=== PATIENT | female | born 1960 | race Caucasian/White ===

== ENCOUNTER 2021-12-04 13:49 | Outpatient (CLI) | payer OTHER, SELFPAY ==
--- OUTSIDE RECORDS SUMMARY | 2021-12-04 13:53 | XMS_ITS | Clinical Summary ---
:1960 Author Organization [facility] Address [address] [place] [address] Care Team Providers Name Role Phone No Ref-Primary, Physician Primary Care Provider [phone] Marielle Hernandez DPM, Podiatry/Foot and Ankle Unavailable Surgery Allergies No known active allergies Medications Medication Sig Dispensed Refills Start Date End Date Status sertraline (ZOLOFT) 50 MG tablet Daily 0 021 Active fluorouracil (EFUDEX) 5 % external 0 09/06 Active cream Hospital, Clinic, or Other Ordered Dose Route Frequency Start Date End Date Status Facility Administered Medication triamcinolone (KENALOG-40) 40 mg 01/30/2021 Active injection 40 mgIndications: Right foot pain, Plantar fasciitis, right 2 mL bupivacaine (MARCAINE) 2 mL 01/30/2021 Active preservative free injection 0.5% (20 mL vial)Indications: Right foot pain, Plantar fasciitis, right Social History Tobacco Use Types Packs/Day Years Used Date Smoking Tobacco: Never Smokeless Tobacco: Never Tobacco Cessation: Counseling Given: No Sex Assigned at Date Recorded Not on file Last Filed Vital Signs Vital Sign Reading Time Taken Comments Blood Pressure 112/72 01/30/2021 2:53 PM SPECIAL ORDER JEWELER Pulse - - Temperature - - Respiratory Rate - - Oxygen Saturation - - Inhaled Oxygen Concentration - - Weight 87.6 kg (193 lb 3.2 oz) 01/30/2021 2:53 PM SPECIAL ORDER JEWELER Height 176.5 cm (5' 9.5) 01/30/2021 2:53 PM SPECIAL ORDER JEWELER Body Mass Index 28.12 01/30/2021 2:53 PM SPECIAL ORDER JEWELER Plan of Treatment Health Maintenance Due Date Last Done Comments ADVANCE CARE PLANNING 1960 ANNUAL REVIEW OF HM ORDERS 1960 CT COLONOGRAPHY 1962 FIT-DNA (Cologuard) 1962 FIT 1962 FLEX SIG 1960 HEPATITIS B IMMUNIZATION (1 1962 of 3 - 3-dose series) MAMMO SCREENING 1960 YEARLY PREVENTIVE VISIT 1962 COLONOSCOPY 1972 COLORECTAL CANCER SCREENING 1972 HIV SCREENING 1977 HEPATITIS C SCREENING 1980 PAP 12/10/1983 LIPID 12/10/2007 ZOSTER IMMUNIZATION (1 of 2012 2) COVID-19 Vaccine (3 - 08/24/2020 06/29/2020, 06/01/2020 Booster for Moderna series) PHQ-2 (once per calendar 02/09/2021 year) INFLUENZA VACCINE (#1) 2021 11/06/2014, 02/26/2009, 12/07/2002, Additional history exists DTAP/TDAP/TD IMMUNIZATION 01/08/2031 01/08/2021, 01/08/2021 , (5 - Td or Tdap) 02/05/2009, Additional history exists IPV IMMUNIZATION Aged Out No longer eligi ble based on patient 's age to complete this topic MENINGITIS IMMUNIZATION Aged Out No longe r eligible based on patient 's age to complete this topic Pneumococcal Vaccine: Aged Out No longer eligible Pediatrics (0 to 5 Years) based on patient's age and At-Risk Patients (6 to to co mplete this topic 64 Years) Insurance Payer Benefit Plan / Subscriber ID Effective Phone Address T e Group Dates [facility] [id number] 2019-Prese [phone] [address] [facility] [address] [place] [address] (Work) [phone] Care Teams Miniature Set Constructor Relationship Specialty Start Date End Date No Ref-Primary, PCP - General 01/25/20 Physician Marielle Hernandez, DPM, Assigned Musculoskeletal 01/29/20 Podiatry/Foot and Ankle Provider Surgery [address] [place] [address] [id number]
--- OUTSIDE RECORDS SUMMARY | 2021-12-04 13:53 | XMS_ITS | Encounter Summary ---
:1960 Author Organization [facility] Address [address] [place] [address] Care Team Providers Name Role Phone No Ref-Primary, Physician Primary Care Provider [phone] Reason for Referral Diagnostic Imaging XR (Routine) - Closed Specialty Diagnoses / Procedures Referred By Contact Refer red To Contact Diagnoses Right foot pain Marielle Hernandez DPM, Procedures XR Foot Right G/E 3 Views Podiatry/Foot and Ankle Surgery [address] [place] [address] Referral ID Status Reason Start Date Expiration Date Visits Requ ested Visits Authorized [id number] Closed 01/25/2020 01/24/2021 1 1 KING CRANE ENGINE OPERATOR Reason for Visit Reason Comments Pain heel pain Encounter Details Date Type Department Care Team Description 01/25/2020 [facility], f [facility]ot pain (Primary Dx); [facility] [place] [facility], Podiatry/Foot [place] fasciitis, right; Podiatry and Ankle Surgery [place] [address] [place] [address] [place] [address] [place], [place] [phone] [id number] (Wo rk) Social History Tobacco Use Types Packs/Day Years Used Date Smoking Tobacco: Never Smokeless Tobacco: Never Tobacco Cessation: Counseling Given: Yes Sex Assigned at Date Recorded Not on file COVID-19 Exposure Response Date Recorded In the last month, have you been in contact with No / Unsure 01/25/2020 3:25 PM WRECKING CRANE ENGINE OPERATOR someone who was confirmed or suspected to have Coronavirus / COVID-19? documented as of this encounter Last Filed Vital Signs Vital Sign Reading Time Taken Comments Blood Pressure 118/70 01/25/2020 3:44 PM WRECKING CRANE ENGINE OPERATOR Pulse - - Temperature - - Respiratory Rate - - Oxygen Saturation - - Inhaled Oxygen Concentration - - Weight 83.9 kg (185 lb) 01/25/2020 3:44 PM WRECKING CRANE ENGINE OPERATOR stated Height 176.5 cm (5' 9.5) 01/25/2020 3:44 PM WRECKING CRANE ENGINE OPERATOR stated Body Mass Index 26.93 01/25/2020 3:44 PM WRECKING CRANE ENGINE OPERATOR documented in this encounter Patient Instructions Patient InstructionsKylah Meyer - 01/25/2020 3:45 PM CST Images from the original note were not included. Thank you for choosing [facility] Podiatry / Foot & Ankle Surgery! [facility] SCHEDULE SURGERY: [phone] BILLING QUESTIONS: [phone] [place] [address] AFTER HOURS: PH: [phone] CONSUMER MARQUES LINE:[phone] FAX: [phone] APPOINTMENTS: [phone] PLANTAR FASCIITIS Plantar fasciitis is often referred to as heel spurs or heel pain. Plantar fasciitis is a very common problem that affects people of all foot shapes, age, weight and activity level. Pain may be in the arch or on the weight-bearing surface of the heel. The pain may come on without injury or identifiable cause. Pain is generally present when first getting out of bed in the morning or up from a seated break. CAUSES The plantar fascia is a dense fibrous band of tissue that stretches across the bottom surface of thefoot. The fascia helps support the foot muscles and arch. Plantar fasciitis is thought to be caused by mechanical strain or overload. Frequent walking without shoes or wearing unsupportive shoes is thought to cause structural overload and ultimately inflammation of the plantar fascia. Some people haveheel spurs that can be seen on x-ray. The heel spur is actually a minor component of plantar fascitis and is largely ignored. SELF TREATMENT The easiest solution is to stop walking around your home without shoes. Plantar fasciitis is largelya shoe problem. Shoes are either not being worn often enough or your current shoes are inadequate for your weight, foot structure or activity level. The majority of shoes on the market today are not sufficient to resist development of plantar fasciitis or to promote healing. Assume that your current shoes are inadequate and will need to be replaced. Even high quality shoes wear out with 6 months to one year of frequent use. Weight loss is another option. Losing ten pounds in the next two months may be enough to resolve the problem. Ice applied to the area of pain two to three times per day for ten minutes each session can be very helpful. This should continue until the problem resolves. Achilles tendon stretching is essential. Stretch multiple times daily to promote healing and to prevent recurrence in the future. MEDICAL TREATMENT Medical treatments often include custom arch supports, cortisone injections, physical therapy, splints to be worn in bed, prescription medications and surgery. The home treatments listed above will be necessary regardless of these advanced medical treatments. Surgery is rarely needed but is very helpful in selected cases. PROGNOSIS Plantar fasciitis can last from one day to a lifetime. Some people get intermittent fascitis that isvery short-lived. Others suffer daily for years. Excessive body weight, frequent bare foot walking, long hours on the feet, inadequate shoes, predisposing foot structures and excessive activity such as running are all potential issues that lead to chronic and/or recurring plantar fascitis. Having plantar fasciitis means that you are forever prone to this problem and will require modification of some of the above factors. Most people seek treatment within one to four months. Healing usually requires a similar one to four month time frame. Healing time is relative to the amount of effort spent treating the problem. Plantar fasciitis is highly recurrent. Risk factors often continue, including return to bare foot walking, inadequate shoes, excessive body weight, excessive activities, etc. Your life style and foot structure may predispose you to recurrent plantar fasciitis. A daily prevention regimen can be very helpful. Ongoing use of shoe inserts, careful attention to appropriate shoes, daily Achilles stretching, etc. may prevent recurrence. Prompt attention at the earliest warning signs of heel pain can resolve the problem in as short as a few days. EXERCISES Stair Exercise: Step on the stairs with the ball of your foot and hold your position for at least 15seconds, then slowly step down with the heels of your foot. You can do this daily and as often as you want. Picking the Towel: Sit comfortably and then pick the towel up with your toes. You can use any objectother than a towel as long as the material can be soft and you can pick it up with your toes. Rolling the Bottle: Use a small ball or frozen water bottle and then roll it around with your foot. Flex the Toes: Sit comfortably and then flex your toes by pointing it towards the floor or towards your body. This will relax and flex your foot and exercise your plantar fascia, the calf, and the Achilles tendon. The inability of the foot to stretch often causes the bunching up of the plantar fascia area leading to the pain. Calf/Achilles Stretching: Lay on you back and raise one foot, then point your toes towards the floor. See photo below: Hold each stretch for 10 seconds. Stretch 10 times per set, three sets per day. Morning, afternoon and evening. If your heel pain is very severe in the morning, consider doing the first set of stretches before you get out of bed. THERAPIES DISCUSSED: 1. Supportive Shoes: minimizing barefoot ambulation helps to provide cushion, padding and support tothe ligament that is inflamed. Socks, flip flops, flats and some slippers are not typically sufficient to provide support. Shoes should be worn even indoors 2. Insert/Orthotics: ones with an arch support built in to them provide further stress relief for the ligament. See the information below on recommended inserts. 3. Icing: using a frozen water bottle or orange, and rolling it along the bottom of the arch/heel can help to alleviate discomfort, and can act as a tissue massage to the painful, inflamed ligament. There is evidence that shows icing at least three times daily can be beneficial 4. Antiinflammatory (NSAID): Ibuprofen, Aleve, as well as Tylenol can be used to help decrease symptoms and improve pain levels. If you have high blood pressure, heart disease, stomach or kidney problems, use antiinflammatories sparingly. Tylenol should not be used if you have liver problems. 5. Activity Modifications: if there are certain things that you do, whether it's going barefoot or certain shoes/activities, you should try to minimize those activities as much as possible until your symptoms are sufficiently resolved. Certainly, some activities, such as running on the treadmill, are easier to take a break from versus others, such as work or chores at home. If there are certain activities that hurt your heel, and you keep doing those activities that hurt your heel, your heel will keep hurting. If these initial therapies are insufficient, we have our tier 2 therapies that can more aggressively work to improve your symptoms and get you back to the activities that you enjoy! OVER THE COUNTER INSERTS Most of these can be found at your local [employer], Physician Referral Network (PRN), or online: [employer] Sofsole Fit Joonto Power Step Walk-Fit ([employer]) *For heel pain* Arch Cradles *For heel pain* A good high quality over the counter insert should cost around $40-$50 [employer] LOCATIONS [place] [address] [place] [address] [phone] [place] [address] [facility] [phone] [place] [address] [facility] N. [phone] [place] [address] [facility] [phone] [place] [address] [place] [address] [place]. [phone] [facility] [address] [facility] [phone] [place] [address] [facility], [address] [place] [address] [facility], [address] KING CRANE ENGINE OPERATOR documented in this encounter Progress Notes Marielle Hernandez DPM, Podiatry/Foot and Ankle Surgery - 01/25/2020 3:45 PM WRECKING CRANE ENGINE OPERATOR PATIENT HISTORY: Isatu Melton is a 59 year old female who presents to clinic for pain to the right heel. Has been going on for years. Gradually getting worse. Notes deep ache most of the time but can be sharp especially when she gets up in the morning or after she has been standing for a long time.Pain is 8 out of 10 at its worst. Denies specific injury. She does wear shoes in the house and has tried massage to the area which helps some. She is wondering what can be done to get rid of the heel pain. Review of Systems: Patient denies fever, chills, rash, wound, stiffness, numbness, weakness, heart burn, blood in stool, chest pain with activity, calf pain when walking, shortness of breath with activity, chronic cough, easy bleeding/bruising, swelling of ankles, excessive thirst, fatigue, depression, anxiety. Patient admits to limping at times. PAST MEDICAL HISTORY: No past medical history on file. PAST SURGICAL HISTORY: No past surgical history on file. MEDICATIONS: No current outpatient medications on file. ALLERGIES: No Known Allergies SOCIAL HISTORY: Social History Socioeconomic History ??? Marital status: Spouse name: Not on file ??? Number of children: Not on file ??? Years of education: Not on file ??? Highest education level: Not on file Occupational History ??? Not on file Social Needs ??? Financial resource strain: Not on file ??? Food insecurity Worry: Not on file Inability: Not on file ??? Transportation needs Medical: Not on file Non-medical: Not on file Tobacco Use ??? Smoking status: Never Smoker ??? Smokeless tobacco: Never Used Substance and Sexual Activity ??? Alcohol use: Not on file ??? Drug use: Not on file ??? Sexual activity: Not on file Lifestyle ??? Physical activity Days per week: Not on file Minutes per session: Not on file ??? Stress: Not on file Relationships ??? Social connections Talks on phone: Not on file Gets together: Not on file Attends [employer]ar[employer] service: Not on file Active member of club or organization: Not on file Attends meetings of clubs or organizations: Not on file Relationship status: Not on file ??? Intimate partner violence Fear of current or ex partner: Not on file Emotionally abused: Not on file Physically abused: Not on file Forced sexual activity: Not on file Other Topics Concern ??? Not on file Social History Narrative ??? Not on file FAMILY HISTORY: No family history on file. EXAM:Vitals: Ht 1.765 m (5' 9.5) Wt 83.9 kg (185 lb) BMI 26.93 kg/m?? BMI= Body mass index is 26.93 kg/m??. General appearance: Patient is alert and fully cooperative with history & exam. No sign of distress is noted during the visit. Psychiatric: Affect is pleasant & appropriate. Patient appears motivated to improve health. Respiratory: Breathing is regular & unlabored while sitting. HEENT: Hearing is intact to spoken word. Speech is clear. No gross evidence of visual impairment that would impact ambulation. Dermatologic: Skin is intact to both lower extremities without significant lesions, rash or abrasion. No paronychia or evidence of soft tissue infection is noted. Vascular: DP & PT pulses are intact & regular bilaterally. No significant edema or varicosities noted. CFT and skin temperature is normal to both lower extremities. Neurologic: Lower extremity sensation is intact to light touch. No evidence of weakness or contracture in the lower extremities. No evidence of neuropathy. Musculoskeletal: Patient is ambulatory without assistive device or brace. No gross ankle deformity noted. No foot or ankle joint effusion is noted. Radiographs: right foot xray - I personally reviewed the xrays- Increase calcaneal inclination angle. Plantar heel spur noted. No fractures noted. ASSESSMENT: Right foot pain Plantar fasciitis, right Pes cavus PLAN: Reviewed [facility] in [facility]. Reviewed and discussed x-rays with patient. The potential causes and nature of plantar fasciitis were discussed with the patient. We reviewed the natural history/prognosis of the condition and risks if left untreated. These include chronic pain, other sites of pain due to gait changes, and potential plantar fascial rupture. We discussed possible causes of the condition as it relates to the patients specific situation. Conservative treatment options were reviewed: appropriate shoes, avoidance of barefoot walking, inserts/orthoses, stretching, ice, massage, immobilization and NSAIDs. We also reviewed the options of injection therapy and surgery. However, it was made clear that surgery is only considered when conservative therapy fails. The risks and benefits of injection therapy, and surgery were discussed. After thorough discussion and answering all questions, the patient elected to do an injection of theright heel today. We will also order an ankle brace that she will wear for the next 2 weeks to protect the plantar fascia. Recommend a night splint that she wear at night and continue to wear supportive sandals and shoes such as half lingers in the house and not go barefoot or in socks. Recommend continuing stretching and she was given some stretches today. If pain does not improve in 3 to 4 weeks recommend an MRI of the right ankle. All questions were answered to patient satisfaction and she will call further questions or concerns.. Procedure: After verbal consent, the patients max point of tenderness was marked out on the right plantar heel. This area was prepped and draped using sterile technique. An injection of 1cc of 1% lidocaine plain and 1 1/2 cc of Kenalog-40 was injected into the max point of tenderness. This was distributed in a fanning motion. Patient tolerated the procedure and anesthesia well. Marielle Hernandez DPM, Podiatry/Foot and Ankle Surgery Weight management plan: Patient was referred to their PCP to discuss a diet and exercise plan. KING CRANE ENGINE OPERATOR documented in this encounter Plan of Treatment Not on filedocumented as of this encounter Results XR Foot Right G/E 3 Views (01/25/2020 4:05 PM WRECKING CRANE ENGINE OPERATOR) Anatomical Region Laterality Modality Foot, Ankle Right Computed Radiography Specimen (Source) Anatomical Location Collection Method / Collectio n Time Received Time / Laterality Volume Impressions 01/26/2020 4:15 PM WRECKING CRANE ENGINE OPERATOR IMPRESSION: No acute bony or soft tissue abnormality. Plantar calcaneal spur. No degenerative changes. RAO EDWARDS MD Narrative 01/26/2020 4:15 PM WRECKING CRANE ENGINE OPERATOR FOOT RIGHT THREE OR MORE VIEWS 01/25/2020 4:05 PM HISTORY: Right foot pain. COMPARISON: None. Procedure Note Rao Edwards MD - 01/26/2020Fo rmatting of this note might be different from the original. FOOT RIGHT THREE OR MORE VIEWS 0 4:05 PM HISTORY: Right foot pain. COMPARISON: None. IMPRESSION: No acute bony or soft tissue abnormality. Plantar calcaneal spur. No degenerative changes. RAO EDWARDS MD Marielle Hernandez DPM, Podiatry/Foot and Ankle Surgery IMG DIAGNOSTIC IMAGING ORDERABLES documented in this encounter Visit Diagnoses Diagnosis Right foot pain - Primary Pain in limb Plantar fasciitis, right Plantar fascial fibromatosis Pes cavus Tal[place] cavus Right foot pain Pain in limb documented in this encounter Care Teams Mva Operator Relationship Specialty Start Date End Date No Ref-Primary, Physician PCP - General 01/25/20 documented as of this encounter
--- OUTSIDE RECORDS SUMMARY | 2021-12-04 13:53 | XMS_ITS | Continuity of Care Document ---
:1960 Author Organization [facility] Address Unavailable , Encounter 11/25/21 - 11/25/21 [facility] Encounter Diagnosis Bronchitis, unclear etiology (Discharge Diagnosis) - 11/25/21 Discharge Disposition: Home Attending Physician: Teagan Baires NP Admitting Physician: Teagan Baires NP Referring Physician: Teagan Baires NP Assessment and Plan Extracted from: Title: Urgent Care Note Author: Teagan Baires NP Date: 11/25 Bronchitis, unclear etiology -7 days course. Did not start with other upper respiratory symptoms; so I am not convinced it is infectious-based. Possibly due to environmental allergens. ??I discussed that we could??put her on a 5-da y burst of prednisone to see if that dougie l help with inflammation??of her upper airways??and hopefully??reduce her cough.?? In addition, I can also prescribe her??some guaifenesin with codeine??that she could use??at nighttime.?? She verbalize d understanding of the plan and is in agreement.?? I advised her that if her symptoms do not resolve over the next??few weeks, to follow-up. Orders: codeine-guaifenesin, 10 ML, orally, ever y 4 hour, X 7 Days, # 120 ML, Refill(s) 0, PRN as needed for cough, Pharmacy: [facility] predniSONE, 40 MG = 2 tab, orally, 1 ti me a day, X 5 Days, # 10 tab, Refill(s) 0, Pharmacy: [facility] Functional Status 11/25/21 ADLs (func) Independent Disabilities (func) None Medications codeine-guaifenesin 10 mg-100 mg/5 ml oral syrup 10 ML, orally, every 4 hour, X 7 Days, # 120 ML, Refill(s) 0, PRN as needed for cough, Pharmacy: [facility] Start Date: 11/25/21 Stop Date: 12/02/21 Status: Orderedprednisone 20 mg oral tablet 40 MG = 2 tab, orally, 1 time a day, X 5 Days, # 10 tab, Refill(s) 0, Pharmacy: [facility] Start Date: 11/25/21 Stop Date: 11/30/21 Status: Orderedsertraline 50 mg oral tablet 50 MG = 1 tab, orally, 1 time a day, Refill(s) 0 Start Date: 11/25/21 Status: Ordered Mental Status 11/25/21 Able to Report correct day of the week Correct Able to Report correct month Accurate within 5 days Able to Report correct year Correct Problem List Diagnosis Diagnosis Type Effective Dates Health Status Clinical In formant Service Bronchitis, Discharge 11/25/21 Non-Specified unclear etiology Diagnosis Vital Signs Most recent to oldest [Reference Range]: 1 Blood Pressure [100-150/50-95 mmHg] 129/78 mmHg (11/25/21 8:47 AM) Respiratory Rate [12-20 br/min] 16 br/min (11/25/21 8:47 AM) Temperature Oral [96-100 DegF] 98.3 DegF (11/25/21 8:47 AM) Pulse Rate [55-100 bpm] 62 bpm (11/25/21 8:47 AM) Oxygen Saturation [94-100 %] 97 % (11/25/21 8:47 AM) Do you have these Coronavirus symptoms? Cough, Sore throat (11/25/21 8:47 AM) Where have you traveled? [place] (11/25/21 8:47 AM) Social History Social History Type Response Smoking Status Never (less than 100 in life time); Never; Tobacco Screening/Education Patient was screened for tobacco use and is a nonuser.; Smoking in Household No entered on: 11/25/21 Sex Female
--- OUTSIDE RECORDS SUMMARY | 2021-12-04 13:53 | XMS_ITS | Encounter Summary ---
:1960 Author Organization [facility] Address [address] [place] [address] Care Team Providers Name Role Phone No Ref-Primary, Physician Primary Care Provider [phone] Reason for Visit Diagnostic Imaging XR (Routine) - Closed Specialty Diagnoses / Procedures Referred By Contact Refer red To Contact Diagnoses Right foot pain Marielle Hernandez, DPM, Procedures XR Foot Right G/E 3 Views Podiatry/Foot and Ankle Surgery [address] [facility] [address] [place] [address] Referral ID Status Reason Start Date Expiration Date Visits Requ ested Visits Authorized [id number] Closed 01/25/2020 01/24/2021 1 1 Encounter Details Date Type Department Care Team Description 01/25/2020 [facility] Right foot pain Sports and DPM, Podiatry/Foot Orthopedic Care and Ankle Surger y [place] [address] [address] [facility] [address] [place] [address] [id number] Social History Tobacco Use Types Packs/Day Years Used Date Smoking Tobacco: Never Smokeless Tobacco: Never Sex Assigned at Date Recorded Not on file COVID-19 Exposure Response Date Recorded In the last month, have you been in contact with No / Unsure 01/25/2020 3:25 PM FOLDER TIER someone who was confirmed or suspected to have Coronavirus / COVID-19? documented as of this encounter Plan of Treatment Not on filedocumented as of this encounter Procedures Procedure Name Priority Date/Time Associated Diagnosis Comme nts XR FOOT RIGHT G/E 3 Routine 01/25/2020 4:05 PM Right foot pain Results for this VIEWS FOLDER TIER procedure are i n the results section. documented in this encounter Results XR Foot Right G/E 3 Views (01/25/2020 4:05 PM FOLDER TIER) Anatomical Region Laterality Modality Foot, Ankle Right Computed Radiography Specimen (Source) Anatomical Location Collection Method / Collectio n Time Received Time / Laterality Volume Impressions 01/26/2020 4:15 PM FOLDER TIER IMPRESSION: No acute bony or soft tissue abnormality. Plantar calcaneal spur. No degenerative changes. RAO EDWARDS MD Narrative 01/26/2020 4:15 PM FOLDER TIER FOOT RIGHT THREE OR MORE VIEWS 01/25/2020 [...] encounter Visit Diagnoses Diagnosis Right foot pain Pain in limb documented in this encounter Care Teams Leadite Worker Relationship Specialty Start Date End Date No Ref-Primary, Physician PCP - General 01/25/20 documented as of this encounter
--- OUTSIDE RECORDS SUMMARY | 2021-12-04 13:53 | XMS_ITS | Encounter Summary ---
:1960 Author Organization [facility] Address [address] [place] [address] Care Team Providers Name Role Phone No Ref-Primary, Physician Primary Care Provider [phone] Marielle Hernandez DPM, Podiatry/Foot and Ankle Unavailable Surgery Encounter Details Date Type Department Care Team Description 01/30/2021 Office Visit [facility] Marielle Hernandez, NO SHOW (Primary Dx) [facility] DPGrant, Podiatry/Foot Podiatry and Ankle Surgery [address] [place] [address] [place], [place] [phone] (Wo rk) Social History Tobacco Use Types Packs/Day Years Used Date Smoking Tobacco: Never Smokeless Tobacco: Never Sex Assigned at Date Recorded Not on file COVID-19 Exposure Response Date Recorded In the last month, have you been in contact with No / Unsure 01/30/2021 2:[address] ENGINEER someone who was confirmed or suspected to have Coronavirus / COVID-19? documented as of this encounter Progress Notes Marielle Hernandez DPM, Podiatry/Foot and Ankle Surgery - 01/30/2021 7:[address] ENGINEER No show WAY ENGINEER documented in this encounter Plan of Treatment Not on filedocumented as of this encounter Visit Diagnoses Diagnosis NO SHOW - Primary documented in this encounter Care Teams Junior Account Executive Relationship Specialty Start Date End Date No Ref-Primary, PCP - General 01/25/20 Physician Marielle Hernandez DPM, Assigned Musculoskeletal 01/29/20 Podiatry/Foot and Ankle Provider Surgery [address] [place] [address] documented as of this encounter
--- OUTSIDE RECORDS SUMMARY | 2021-12-04 13:53 | XMS_ITS | Encounter Summary ---
:1960 Author Organization [facility] Address [address] [place] [address] Care Team Providers Name Role Phone No Ref-Primary, Physician Primary Care Provider [phone] Marielle Hernandez DPM, Podiatry/Foot and Ankle Unavailable Surgery Reason for Visit Reason Comments Pain Encounter Details Date Type Department Care Team Description 01/30/2021 Office Visit [facility] Marielle Hernandez, Right f oot pain (Primary Dx); [facility] [place] DPM, Podiatry/Foot Planta r fasciitis, right Podiatry and Ankle Surgery [address] [place] [address] [place], [place] [phone] [facility] [phone] (Wo rk) Social History Tobacco Use Types Packs/Day Years Used Date Smoking Tobacco: Never Smokeless Tobacco: Never Tobacco Cessation: Counseling Given: No Sex Assigned at Date Recorded Not on file COVID-19 Exposure Response Date Recorded In the last month, have you been in contact with No / Unsure 01/30/2021 2:48 PM TOWER WATCHMAN someone who was confirmed or suspected to have Coronavirus / COVID-19? documented as of this encounter Last Filed Vital Signs Vital Sign Reading Time Taken Comments Blood Pressure 112/72 01/30/2021 2:53 PM TOWER WATCHMAN Pulse - - Temperature - - Respiratory Rate - - Oxygen Saturation - - Inhaled Oxygen Concentration - - Weight 87.6 kg (193 lb 3.2 oz) 01/30/2021 2:53 PM TOWER WATCHMAN Height 176.5 cm (5' 9.5) 01/30/2021 2:53 PM TOWER WATCHMAN Body Mass Index 28.12 01/30/2021 2:53 PM TOWER WATCHMAN documented in this encounter Patient Instructions Patient InstructionsFlores Campos - 01/30/2021 2:45 PM CST Images from the original note were not included. Thank you for choosing [facility] Podiatry / Foot & Ankle Surgery! [facility]: [facility] SCHEDULE SURGERY: [phone] BILLING QUESTIONS: [phone] [place] [address] APPOINTMENTS: [phone] PH: [phone] CONSUMER MARQUES LINE:[phone] FAX: [phone] Follow up: as needed Flu vaccines are now available at all [facility] clinics and retail pharmacies across the [facility]. Appointments are required for clinic locations. To schedule an appointment online, please log into [facility] or create an account if you are a new user. You can also call , or simply walk in at one of the [facility] retail pharmacy locations. PLANTAR FASCIITIS Plantar fasciitis is often referred [...] minutes each session can be very helpful. Warm foot soaks in epsom salts can also relieve pain. This should continue until the problem resolves. Achilles tendon stretching is essential. Stretch multipletimes daily to promote healing and to prevent recurrence in the future. Over all stretching of the body is helpful as well such as the calves, thighs and lower back. Normally when one area of the body is tight, other areas are too. Gentle Yoga can be good for this. Over the counter topical anti inflammatories can be helpful such as biofreeze, bengay, salon pas, ect... Oral ibuprofen or aleve is recommended as well to try to calm down inflammation. Night splints can be helpful to gradually stretch the foot at night as a lot of pain is when you getup in the morning. Taking a towel or thera band and stretching the foot back multiple times before you get ou of bed can be beneficial as well. MEDICAL TREATMENT Medical treatments often include custom [...] stretches before you get out of bed. OVER THE COUNTER INSERT RECOMMENDATIONS SuperFeet Sofsole Fit Spenco Power Step Walk-Fit Arch Cradles Most of these can be found at your local [employer], sporting goods stores, or online. A good high quality over the counter insert should cost around $40-$[address] [facility] [address] [place] [address] [phone] [phone] [phone] [place] [address] [phone] [phone] [facility] [address] [facility] [phone] [address] [facility] [address] [place] [address] R WATCHMAN documented in this encounter Progress Notes Marielle Hernandez, MARVA, Podiatry/Foot and Ankle Surgery - 01/30/2021 2:45 PM TOWER WATCHMAN Associated Order(s): Post-Procedure Diagnose(s): Right foot pain; Plantar fasciitis, right Podiatry / Foot and Ankle Surgery Progress Note January 30, 2021 Subject: Patient was seen for pain. Notes that she had an injection about a year ago and it lasted for about 6 to 7 months. Slowly has been getting sore again. Pain is been 7 out of 10. Worse with standing or increased activity. Denies specific injury. Wondering if she can get another shot again today. Objective: Vitals: BP 112/72 Ht 1.765 m (5' 9.5) Wt 87.6 kg (193 lb 3.2 oz) BMI 28.12 kg/m?? BMI= Body mass index is 28.12 kg/m??. Dermatologic: Skin is intact to both lower [...] foot or ankle joint effusion is noted. ?? Radiographs: right foot xray - I personally reviewed the xrays- Increase calcaneal inclination angle. Plantar heel spur noted. No fractures noted. ASSESSMENT: Right foot pain Plantar fasciitis, right Pes cavus Medical Decision Making/Plan: Reviewed patient's chart in [facility]. Reviewed and discussed x-rays with patient. The potential causes and nature of plantar fasciitis were discussed with the patient.?? We reviewed the natural history/prognosis of the condition and risks if left untreated.?? These include chronic pain, other sites of pain due to gait changes, and potential plantar fascial rupture. ?? We discussed possible causes of the condition as it relates to the patients specific situation. ?? Conservative treatment options were reviewed:?? appropriate shoes, avoidance of barefoot walking, inserts/orthoses, stretching, ice, massage, immobilization and NSAIDs. ?? We also reviewed the options of injection therapy and surgery.?? However, it was made clear that surgery is only considered when conservative therapy fails.?? The risks and benefits of injection therapy, and surgery were discussed. ?? After thorough discussion and answering all questions, [...] will call further questions or concerns.. Procedure: [id number] Date/Time: 01/30/2021 3:15 PM Performed by: Marielle Hernandez DPM, Podiatry/Foot and Ankle Surgery Authorized by: Marielle Hernandez DPM, Podiatry/Foot and Ankle Surgery Indications: Pain Needle Size: 25 G Guidance: surface landmarks Approach: Medial Location: Ankle Location comment: Right plantar fascia Site: R ankle Medications: 40 mg triamcinolone 40 MG/ML; 2 mL bupivacaine (PF) 0.5 % Outcome: Tolerated well, no immediate complications Procedure discussed: discussed risks, benefits, and alternatives Consent Given by: Patient Timeout: timeout called immediately prior to procedure Prep: patient was prepped and draped in usual sterile fashion Patient Risk Factor: Patient is a low risk factor for infection. Marielle Hernandez DPM, Podiatry/Foot and Ankle Surgery R WATCHMAN documented in this encounter Plan of Treatment Not on filedocumented as of this encounter Procedures Procedure Name Priority Date/Time Associated Diagnosis Comme nts HC DRAIN/INJ INTER Routine 01/30/2021 3:15 PM Right foot pain Results for this JOINT/BURSA W/O US TOWER WATCHMAN Plantar fasciitis, pro cedure are in right the results section. FL INJECTION SINGLE Routine 01/30/2021 3:14 PM Right trina t pain TENDON TOWER WATCHMAN Plantar fasciitis, SHEATH/LIGAMENT right documented in this encounter Results HC DRAIN/INJ INTER JOINT/BURSA W/O US (01/30/2021 3:15 PM TOWER WATCHMAN) Narrative Marielle Hernandez DPM, Podiatry/Foot and A nkle Surgery - 01/30/2021 3:15 PM TOWER WATCHMAN Marielle Hernandez DPM, Podiatry/Foot and Ankle Surgery ? 01/30/2021 ??3:15 PM [id number] Date/Time: 01/30/2021 3:15 PM Performed by: Marielle Hernandez DPM, Césaria try/Foot and Ankle Surgery Authorized by: Marielle Hernandez DPM, Junior atry/Foot and Ankle Surgery Indications: ??Pain Needle Size: ??25 G Guidance: surface landmarks ?? Approach: ??Medial Location: ??Ankle Location comment: ??Right plantar fascia Site: ??R ankle Medications: ??40 mg triamcinolone 40 MG /ML; 2 mL bupivacaine (PF) 0.5 % Outcome: ??Tolerated well, no immediate complications Procedure discussed: discussed risks, be nefits, and alternatives ?? Consent Given by: ??Patient Timeout: timeout called immediately prio r to procedure ?? Prep: patient was prepped and draped in usual sterile fashion ?? Marielle Hernandez DPM, Podiatry/Foot and Ankle PROCEDURE/M INOR SURGICAL ORDERABLES Surgery documented in this encounter Visit Diagnoses Diagnosis Right foot pain - Primary Pain in limb Plantar fasciitis, right Plantar fascial fibromatosis documented in this encounter Administered Medications Active Administered Medications - up to 3 most recent administrations Medication Order MAR Action Action Date Dose Rate Site 2 mL bupivacaine (MARCAINE) Given 01/30/2021 3:15 PM TOWER WATCHMAN 2 mLs preservative free injection 0.5% (20 mL vial) 2 mL, Starting on Thu01/30/21 at 1515 triamcinolone (KENALOG-40) injection 40 mg Given 01/30/2021 3:15 PM TOWER WATCHMAN 40 mg 40 mg, Starting on Thu01/30/21 at 1515 documented in this encounter Care Teams Sales Development Director Relationship Specialty Start Date End Date No Ref-Primary, PCP - General 01/25/20 Physician Marielle Hernandez DPM, Assigned Musculoskeletal 01/29/20 Podiatry/Foot and Ankle Provider Surgery [address] [place] [address] [place] [address] documented as of this encounter
--- OUTSIDE RECORDS SUMMARY | 2021-12-04 13:53 | XMS_ITS | Encounter Summary ---
:1960 Author Organization [facility] Address [address] [place] [address] Care Team Providers Name Role Phone No Ref-Primary, Physician Primary Care Provider [phone] Encounter Details Date Type Department Care Team Description 01/25/2020 Travel Social History Tobacco Use Types Packs/Day Years Used Date Smoking Tobacco: Never Smokeless Tobacco: Never Sex Assigned at Date Recorded Not on file COVID-19 Exposure Response Date Recorded In the last month, have you been in contact with No / Unsure 01/25/2020 3:25 PM FISHER LAMPARA NET someone who was confirmed or suspected to have Coronavirus / COVID-19? documented as of this encounter Plan of Treatment Not on filedocumented as of this encounter Visit Diagnoses Not on filedocumented in this encounter Care Teams Field Service Engineer Relationship Specialty Start Date End Date No Ref-Primary, Physician PCP - General 01/25/20 documented as of this encounter
--- OUTSIDE RECORDS SUMMARY | 2021-12-04 13:53 | XMS_ITS | Encounter Summary ---
:1960 Author Organization [facility] Address [address] [place] [address] Care Team Providers Name Role Phone No Ref-Primary, Physician Primary Care Provider [phone] Marielle Hernandez DPM, Podiatry/Foot and Ankle Unavailable Surgery Encounter Details Date Type Department Care Team Description 01/30/2021 Travel Social History Tobacco Use Types Packs/Day Years Used Date Smoking Tobacco: Never Smokeless Tobacco: Never Sex Assigned at Date Recorded Not on file COVID-19 Exposure Response Date Recorded In the last month, have you been in contact with No / Unsure 01/30/2021 2:48 PM PROGRAM ADMIN someone who was confirmed or suspected to have Coronavirus / COVID-19? documented as of this encounter Plan of Treatment Not on filedocumented as of this encounter Visit Diagnoses Not on filedocumented in this encounter Care Teams Lead Scientist Relationship Specialty Start Date End Date No Ref-Primary, PCP - General 01/25/20 Physician Marielle Hernandez DPM, Assigned Musculoskeletal 01/29/20 Podiatry/Foot and Ankle Provider Surgery [address] [place] [address] documented as of this encounter
--- OUTSIDE RECORDS SUMMARY | 2021-12-04 13:53 | XMS_ITS | Clinical Summary ---
:1960 Author Organization [facility] [place] [address] Care Team Providers Name Role Phone Regine Rodgers Primary Care Provider Allergies No known active allergies Medications Medication Sig Dispensed Refills Start Date End Date Status sertraline (ZOLOFT) 50 mg once daily. 0 11/23/2020 Active tablet fluorouracil 5% topical 0 09/06/2020 Active (EFUDEX) 5 % cream Active Problems Problem Noted Date Adjustment disorder with depressed mood 02/21/2013 Immunizations Name Administration Dates Next Due Influenza, IIV3 (Age >=3 years) 12/07/2002, 01/27/2002, 08/2001, 02/05/2000, 12/05/1997, 12/01/1996 Influenza, IIV4 11/06/2014 Td (Age >=7 Years) 12/01/1996 Tdap 02/05/2009 Family History Medical History Relation Name Comments Cancer Brother skin Cancer Father lung and lymphom a Hypertension Father Heart Disease Mother Cancer-breast No Family History Cancer-ovarian No Family History Relation Name Status Comments Brother Alive Daughter Alive Father Maternal Grandfather Maternal Grandmother Mother Paternal Grandfather Paternal Grandmother Sister Alive Son Alive Social History Tobacco Use Types Packs/Day Years Used Date Never Smoker Smokeless Tobacco: Never Used Tobacco Cessation: Counseling Given: Yes Alcohol Use Standard Drinks/Week Comments Yes 0 (1 standard drink = 0.6 oz pure one gl ass of wine -4 days a week. alcohol) Alcohol Habits Answer Date Recorded How often do you have a drink 2-4 times a month 01/13/2019 containing alcohol? How many drinks containing alcohol do 1 or 2 you have on a typical day when you are drinking? How often do you have six or more Never 2018 drinks on one occasion? Comment: one glass of wine -4 days a week. 2017 Sex Assigned at Date Recorded Not on file Obstetrics History Para Term AB IAB SAB Ectopic Multiple Living Live Births 3 2 2 0 1 1 0 0 0 2 2 Date Outcome GA Total Labor/2nd/3rd Weight Sex Delivery Anes PTL Franny A 1 A5 Name Clin Labor IAB 11/16 Term 40w 4h 00m/ 4.37 kg F Vag Ebony /1991 0d (9 lb ng 10 oz) 10/20 Term 40w 12h 00m/ 3.86 kg M Vag Ebony /1995 0d (8 lb 8 ng oz) Last Filed Vital Signs Vital Sign Reading Time Taken Comments Blood Pressure 128/85 02/06/2021 4:04 PM MATERNITY NURSE Pulse 64 02/06/2021 4:04 PM MATERNITY NURSE Temperature 36.6 ??C (97.8 ??F) 02/06/2021 4:04 PM MATERNITY NURSE Respiratory Rate 20 02/06/2021 4:04 PM MATERNITY NURSE Oxygen Saturation 100% 02/06/2021 4:04 PM MATERNITY NURSE Inhaled Oxygen Concentration - - Weight 85.7 kg (189 lb) 01/13/2019 9:40 AM MATERNITY NURSE Height 175.9 cm (5' 9.25) 01/13/2019 9:40 AM MATERNITY NURSE Body Mass Index 27.71 01/13/2019 9:40 AM MATERNITY NURSE Plan of Treatment Health Maintenance Due Date Last Done Comments Hepatitis C screening for age 1012/09/1980 18-79 Zoster (shingles) series for age 1012/09/2012 50+ (1 of 2) Colonoscopy through age 75 01/28/2018 01/28/2013 Tetanus booster 02/05/2019 02/05/2009, 01/24/2009, 12/01/1996 BMI (ht and wt on same day) for 01/14/2020 01/13/2019, 12/10, age 18+ 01/21/2017, Additional history exists Depression screening for age 12+ 01/14/2020 01/13/2019, , 12/28/2017, Additional history exists Mammogram for age 45-75 07/19/2020 07/20/2019, 07/20/2019, 01/19/2019, Additional history exists COVID-19 vaccine series (3 - 08/24/2020 06/29/2020, 021 Booster for Moderna series) Influenza for age 50-64 10/10/2021 11/06/2014, 11/06/2014, 12/07/2002, Additional history exists Pap test for age 21-65 01/13/2022 01/13/2019, 05/22/2016, 02/16/2012, Additional history exists Lipids for age 45-75 01/21/2022 01/21/2017, 01/21/2017, 01/24/2011, Additional history exists Tdap Completed 02/05/2009 Results Not on filefrom Last 3 Months Insurance Payer Benefit Plan / Subscriber ID Effective Dates Phone Addre ss Type Group [facility] [id number] 2020-Presen [address] [address] [place] [address] [employer] [place] [id number] 2014-Presen [address] [address] [place] [address] [facility] [id number] 2018-Presen [address] [address] [place] [address] Care Teams Inspector Poising Relationship Specialty Start Date End Date Regine Rodgers PCP - General Nurse Practitioner 01/21/17
--- NOTE | 2021-12-04 14:00 | CRLHL7_ITS ---
For Patients: As a result of the Century Cures Act, medical imaging exams and procedure reports are released immediately into your electronic medical record. You may view this report before your referring provider. If you have questions, please contact your health care provider. BILATERAL SCREENING MAMMOGRAM WITH COMPUTER-AIDED DETECTION AND TOMOSYNTHESIS TECHNIQUE: CC and MLO views were obtained. These mammographic images have been obtained using full-field digital technique. These mammographic images were interpreted with the benefit of computer-aided detection. Breast Tomosynthesis was used in this interpretation. COMPARISON FILM: 09/20/20, 01/12/19, 12/29/17. FINDINGS: The breasts are heterogeneously dense, which may obscure small masses IMPRESSION: There is no radiographic evidence for malignancy. ASSESSMENT: BI-RADS Category 1: Negative RECOMMENDATION: Routine screening mammogram in 1 year. A lay language report of this examination will be provided to the patient. Alex Epstein M.D. Diagnostic Radiologist [email or web address] Transcribed: 4:23 pm DW/Dictated by: Alex Epstein MD @ 12/05/2021 8:56:00 AM (Electronically Signed)
== END 2021-12-04 13:50 | disposition home or self-care (01) ==
LOC: MAMMO 13:51
PROVIDERS: PCP Physician Assistant Medical; Visit Provider Physician Assistant Medical
DX: Z12.31 Encounter for screening mammogram for malignant neoplasm of breast (principal); R92.2 Inconclusive mammogram
CPT/HCPCS: 77063; 77067

== ENCOUNTER 2022-06-11 07:26 | Outpatient (CLI) | payer OTHER, SELFPAY | END 2022-06-11 07:27 | disposition home or self-care (01) | LOC: NFLDREF 06-12 09:16 | PROVIDERS: PCP Physician Assistant Medical; Referring Provider Physician Assistant Medical; Visit Provider Physician Assistant Medical | DX: Z00.00 Encounter for general adult medical examination without abnormal findings (principal); R07.9 Chest pain, unspecified; F41.1 Generalized anxiety disorder; F32.A Depression, unspecified; Z13.6 Encounter for screening for cardiovascular disorders; Z13.29 Encounter for screening for other suspected endocrine disorder; Z82.49 Family history of ischemic heart disease and other diseases of the circulatory system | CPT/HCPCS: 80053; 80061; 84443 ==

== ENCOUNTER 2022-09-02 12:48 | Outpatient (CLI) | payer OTHER, SELFPAY ==
[2022-09-02] MEDS: PERFLUTREN LIPID MICROSPHERES 2 ML VIAL IV (13:27)
[2022-09-02 14:28] VITALS: BP 124/71; PULSE 75
--- NOTE | 2022-09-02 16:58 | W.PM.STED ---
Stress Test Note Date Date of test: 09/02/22 Providers Primary care provider: Gabriela Le Stress test physician: Gilbert Parekh Stress Test Note Stress test ordered: Stress Echo Indication for test: chest pain Stress test medicine: Definity Results discussion: This very pleasant lady presents for the above test after discussion the risks benefits and side effects she would like to proceed cardiac stress test medical history form is reviewed. Following standard Compa protocol, initial EKG shows a ventricular rate of 54 rhythm is sinus, blood pressure 132/79. Panel standard Compa protocol is employed over a time course 10 minutes and 21 seconds, she had a metabolic over 12.1 Mets, XR was 145 which is above the predicted she had no chest pain she had no shortness of breath, there was some mild ST wave valid depression, notable in the inferior lateral leads. Of 2 mm laterally, from V3 through V6, and 2 mm of depression notable on average through 2 3 and AVF. She exercised to a very high level. I suspect that this is a false-positive. Impression: Positive stress test with ST wave depression of 2 mm noted inferiorly, and 1.5 mm noted laterally. Suspect this is a false-positive as she has no symptoms, Follow up suggested: Patient was asymptomatic, left this testing facility in good condition, please use clinical correlation when reviewing the cardiology over read, of the echo. Pulmonary echo report is of negative no wall motion abnormality. Conditioning was felt to be excellent
== END 2022-09-02 12:49 | disposition home or self-care (01) ==
LOC: STRESS 12:49
PROVIDERS: PCP Physician Assistant Medical; Visit Provider Family Medicine
DX: R07.9 Chest pain, unspecified (principal)
CPT/HCPCS: 93016; 93325; 93351; Q9957

== ENCOUNTER 2023-03-09 09:08 | Outpatient (CLI) | payer OTHER, SELFPAY ==
--- OUTSIDE RECORDS SUMMARY | 2023-03-09 09:11 | XMS_ITS | Referral Summary ---
Author Name Unknown Organization [facility] Address [address] [place] [id number] Care Team Providers Care Bridal Consultant Name Role Phone No Ref-Primary, Physician Primary Care Provider Allergies No known active allergies Medications Medication Sig Dispensed Refills Start Date End Date Status sertraline (ZOLOFT) 50 MG tablet Daily 0 11/23/2020 Active fluorouracil (EFUDEX) 5 % external cream 0 09/06/2020 Active Hospital, Clinic, or Other Facility Administered Medication Ordered Dose Route Frequency Start Date End Date Status triamcinolone (KENALOG-40) injection 40 mgIndications:Right foot pain,Plantar fasciitis, right 40 mg 01/30/2021 Active 2 mL bupivacaine (MARCAINE) preservative free injection 0.5% (20 mL vial)Indications:Right foot pain,Plantar fasciitis, right 2 mL 01/30/2021 Active Social History Tobacco Use Types Packs/Day Years Used Date Smoking Tobacco: Never Smokeless Tobacco: Never Tobacco Cessation:Counseling Given: No Adolescent Education Answer Date Record ed Getting School Help Needed Not on file 11/02 Sex and Gender Information Value Date Recorded Sex Assigned at Not on file Gender Identity Not on file Sexual Orientation Not on file Last Filed Vital Signs Vital Sign Reading Time Taken Comments Blood Pressure 112/72 01/30/2021 2:53 PM SALESPERSON WOMEN'S HATS Pulse - - Temperature - - Respiratory Rate - - Oxygen Saturation - - Inhaled Oxygen Concentration - - Weight 87.6 kg (193 lb 3.2 oz) 01/30/2021 2:53 P M SALESPERSON WOMEN'S HATS Height 176.5 cm (5' 9.5) 01/30/2021 2:53 PM SALESPERSON WOMEN'S HATS Body Mass Index 28.12 01/30/2021 2:53 PM SALESPERSON WOMEN'S HATS Plan of Treatment Not on file Care Teams Bridal Consultant Relationship Specialty Start Date End Date No Ref-Primary, Physician PCP - General 01/25/20
--- OUTSIDE RECORDS SUMMARY | 2023-03-09 09:11 | XMS_ITS | Clinical Summary ---
Author Name Unknown Organization [facility] Address [place], [place] [address] Care Team Providers Care Photo Editor Name Role Phone Regine Rodgers Primary Care Provider Marlyn cody Allergies No known active allergies Medications Medication Sig Dispensed Refills Start Date End Date Status sertraline (ZOLOFT) 50 mg tablet once daily. 0 11/23/2020 Active fluorouracil 5% topical (EFUDEX) 5 % cream 0 09/06/2020 Active Active Problems Problem Noted Date Diagnosed Date Adjustment disorder with depressed mood 02/21/19 14 Immunizations Name Administration Dates Next Due Influenza, IIV3 (Age >=3 years) 12/08/19 03,01/27/2002,02/15/2001,02/05/2000, 12/05/1997,12/01/1996 Influenza, IIV4 11/06/2014 Td (Age >=7 Years) 12/01/1996 Tdap 02/05/2009 Family History Medical History Relation Name Comments Cancer Brother skin Cancer Father lung and lympho ma Hypertension Father Heart Disease Mother Cancer-breast No Family History Cancer-ovarian No Family History Relation Name Status Comments Brother Alive Daughter Alive Father Maternal Grandfather Maternal Grandmother Mother Paternal Grandfather Paternal Grandmother Sister Alive Son Alive Social History Tobacco Use Types Packs/Day Years Used Date Smoking Tobacco: Never Smokeless Tobacco: Never Tobacco Cessation:Counseling Given: Yes Alcohol Use Standard Drinks/Week Comments Yes 0 (1 standard drink = 0.6 oz pure alcohol) one glass of wine -4 days a week. PHQ-2 Answer Date Recorded PHQ-2 Score 0 01/13/2019 Sex and Gender Information Value Date Recorded Sex Assigned at Not on file Gender Identity Not on file Sexual Orientation Not on file Obstetrics History Para Term AB IAB SAB Ectopic Multiple Livin g Live Births 3 2 2 0 1 1 0 0 0 2 2 Date Outcome GA Total Labor Labor/2nd/3rd Weight Sex Delivery Anes PTL Franny A1 A5 Name Cl in IAB 11/16 Term 40w 0d 4h 00m/ 4.37 kg (9 lb 10 oz) F Vag Ebony ng 10/20 Term 40w 0d 12h 00m/ 3.86 kg (8 lb 8 oz) M Vag Ebony ng Last Filed Vital Signs Vital Sign Reading Time Taken Comments Blood Pressure 128/85 02/06/2021 4:04 PM CONSTRUCTION SITE MANAGER Pulse 64 02/06/2021 4:04 PM CONSTRUCTION SITE MANAGER Temperature 36.6 ??C (97.8 ??F) 02/06/2021 4:04 PM CS T Respiratory Rate 20 02/06/2021 4:04 PM CONSTRUCTION SITE MANAGER Oxygen Saturation 100% 02/06/2021 4:04 PM CONSTRUCTION SITE MANAGER Inhaled Oxygen Concentration - - Weight 85.7 kg (189 lb) 01/13/2019 9:40 AM CONSTRUCTION SITE MANAGER Height 175.9 cm (5' 9.25) 01/13/2019 9:40 AM CS T Body Mass Index 27.71 01/13/2019 9:40 AM CONSTRUCTION SITE MANAGER Plan of Treatment Health Maintenance Due Date Last Done Comments HIV for age 15-65 1977 Hepatitis C screening for age 18-79 1980 Zoster (shingles) series for age 50+ (1 of 2) 2012 Colonoscopy through age 75 01/28/2018 01/28/2013 Tetanus booster 02/05/2019 02/05/2009, 01/09, 12/01/1996 BMI (ht and wt on same day) for age 18+ 01/14/2020 01/13/2019, 12/28/2017, 01/21/2017, Additional history exists Depression screening for age 12+ 01/14/2020 01/13/2019, 12/29/2017, 12/28/2017, Additional history exists Mammogram for age 45-75 07/19/2020 07/20/19, 07/20/2019, 01/19/2019, Additional history exists Lipids for age 45-75 01/21/2022 01/21/2017, 01/21/2017, 01/24/2011, Additional history exists COVID-19 vaccine series (2022- season) 2022 06/29/2020, 06/01/2020 Influenza for age 50-64 10/10/2022 11/07/19 15, 11/06/2014, 12/07/2002, Additional history exists Pap test for age 21-65 06/12/2025 , 06/12/2022, 01/13/2019, Additional history exists Tdap Completed 02/05/2009 Pneumococcal series for age 6-64 Aged Out No longer eligible based on patient's age to complete this topic Care Teams Photo Editor Relationship Specialty Start Date End Date Regine Rodgers PCP - General Nurse Practitioner 01/21/17
--- OUTSIDE RECORDS SUMMARY | 2023-03-09 09:11 | XMS_ITS | Clinical Summary ---
Author Name Unknown Organization [facility] Address [address] [place] [address] Care Team Providers Care Hired Worker Name Role Phone No Ref-Primary, Physician Primary [...] Comments Blood Pressure 112/72 01/30/2021 2:53 PM GRAIN AND YEAST PLANTS SUPERVISOR Pulse - - Temperature - - Respiratory Rate - - Oxygen Saturation - - Inhaled Oxygen Concentration - - Weight 87.6 kg (193 lb 3.2 oz) 01/30/2021 2:53 P M GRAIN AND YEAST PLANTS SUPERVISOR Height 176.5 cm (5' 9.5) 01/30/2021 2:53 PM GRAIN AND YEAST PLANTS SUPERVISOR Body Mass Index 28.12 01/30/2021 2:53 PM GRAIN AND YEAST PLANTS SUPERVISOR Plan of Treatment Health Maintenance Due Date Last Done Comments ADVANCE CARE PLANNING 1962 ANNUAL REVIEW OF HM ORDERS 1962 CT COLONOGRAPHY 1962 FIT 1962 FLEX SIG 1962 MAMMO SCREENING 1962 YEARLY PREVENTIVE VISIT 1962 sDNA (Cologuard) 1962 COLONOSCOPY 1972 COLORECTAL CANCER SCREENING 1972 HIV SCREENING 1977 HEPATITIS C SCREENING 1980 PAP 12/10/1983 LIPID 12/10/2007 ZOSTER IMMUNIZATION (1 of 2) 2012 COVID-19 Vaccine (3 - season) 2022 06/29/2020, 06/01/2020 INFLUENZA VACCINE (#1) 2022 5, 02/26/2009, 12/07/2002, Additional history exists RSV VACCINE ( & 60+) (1 - 1-dose 60+ series) 2022 PHQ-2 (once per calendar year) 2023 DTAP/TDAP/TD IMMUNIZATION (5 - Td or Tdap) 01/08/2031 01/08/2021, 01/08/2021, 02/05/2009, Additional history exists HPV IMMUNIZATION Aged Out No longer e ligible based on patient's age to complete this topic IPV IMMUNIZATION Aged Out No longer e ligible based on patient's age to complete this topic MENINGITIS IMMUNIZATION Aged Out No l onger eligible based on patient's age to complete this topic Pneumococcal Vaccine: Pediatrics (0 to 5 Years) and At-Risk Patients (6 to 64 Years) Aged Out No longer eligible based on patient's age to complete this topic RSV MONOCLONAL ANTIBODY Aged Out No l onger eligible based on patient's age to complete this topic Care Teams Hired Worker Relationship Specialty Start Date End Date No Ref-Primary, Physician PCP - General 01/25/20
--- NOTE | 2023-03-09 09:15 | CRLHL7_ITS ---
For Patients: As a result of the Century Cures Act, medical imaging exams and procedure reports are released immediately into your electronic medical record. You may view this report before your referring provider. If you have questions, please contact your health care provider. BILATERAL SCREENING MAMMOGRAM WITH COMPUTER-AIDED DETECTION AND TOMOSYNTHESIS TECHNIQUE: CC and MLO views were obtained. These mammographic images have been obtained using full-field digital technique. These mammographic images were interpreted with the benefit of computer-aided detection. Breast Tomosynthesis was used in this interpretation. COMPARISON FILM: 12/04/21, 09/20/20, 01/12/19. FINDINGS: There are scattered areas of fibroglandular density. IMPRESSION: There is no radiographic evidence for malignancy. ASSESSMENT: BI-RADS Category 2: Benign RECOMMENDATION: Routine screening mammogram in 1 year. A lay language report of this examination will be provided to the patient. Alex Epstein M.D. Diagnostic Radiologist [email or web address] SP/Dictated by: Alex Epstein MD @ 03/09/2023 10:33:00 AM (Electronically Signed)
== END 2023-03-09 09:09 | disposition home or self-care (01) ==
PROVIDERS: PCP Physician Assistant Medical; Visit Provider Physician Assistant Medical
DX: Z12.31 Encounter for screening mammogram for malignant neoplasm of breast (principal)
CPT/HCPCS: 77063; 77067

== ENCOUNTER 2023-09-21 09:05 | Outpatient (CLI) | payer OTHER, SELFPAY ==
--- NOTE | 2023-09-21 09:15 | MR_ITS ---
[facility] [address] [facility] [address] Phone:?[phone] Fax:?[phone] Referring Physician Information: Juwan Presley M.D. [address] [facility] [address] Phone:?[phone] Fax:?[phone] Patient:Miguel Melton D.O.B:?1960 Sex:?Female Phone:?[phone] [facility] MRN:?[id number] Exam Date:?09/21/2023 EXAM: MRI EXAMINATION OF THE RIGHT SHOULDER CLINICAL INFORMATION: Right shoulder pain. No history of surgery to this area. Suspect rotator cuff tendon tear. TECHNICAL INFORMATION: Coronal STIR as well as axial, sagittal and coronal PD and T2-weighted images were acquired. Comparison is made with February 04, 2021. INTERPRETATION: Bones: There is no Hill-Sachs impaction deformity. No other occult fracture or osseous contusion. Mild marrow edema signal and cystic change alongside the AC joint. Rotator Cuff: Series 8 image 5 and series 4 image 11 demonstrate a 0.5 x 0.3 cm shallow intrasubstance partial tear involving the anterior supraspinatus tendon insertion. There are surrounding moderate changes of tendinopathy. Directly adjacent marrow edema signal involves the greater tuberosity. Mild infraspinatus tendinopathy. The teres minor tendon is intact. Mild to moderate superior subscapularis tendinopathy. No appreciable rotator cuff muscle belly atrophy. Coracoacromial arch: Mild spurring involves the lateral aspect of the acromion. The bony acromiohumeral interval is measuring 7 to 8 mm. There is no thickening identified of the coracoacromial ligament. 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 Undersurface spurring and resultant mild underlying supraspinatus deformity. Mild fluid and edema signal within the subacromial/subdeltoid bursa areas. Biceps tendon: Intact long head biceps tendon without subluxation from the bicipital groove. Poorly defined, moderate grade partial tear of the tendon towards the superior bicipital groove. Mild tenosynovitis. Glenohumeral joint and labrum: No significant glenohumeral joint effusion. No discrete loose body within the joint. Osteochondral surfaces appear relatively preserved. There is poorly defined tearing identified involving the superior aspect of the labrum. Tear extends involving the superior posterior aspect of the labrum. No discrete paralabral cyst is identified. There is some thickening again identified of the inferior glenohumeral capsule. CONCLUSION: 1. Moderate supraspinatus tendinopathy. There is a small and shallow intrasubstance partial tear towards the anterior tendon insertion, with adjacent reactive marrow edema signal. This is a new finding. 2. Mild infraspinatus and mild to moderate subscapularis tendinopathy. 3. 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 4. Borderline narrowed acromiohumeral interval. Mild subacromial/subdeltoid bursitis has progressed. 5. Long head biceps tendinopathy. Poorly defined and moderate grade partial tearing towards the superior bicipital groove has progressed. Mild tenosynovitis. 6. Tear appears present involving the superior and superior posterior labrum. No paralabral cyst. 7. Thickening is again identified involving the inferior glenohumeral capsule as may be seen associated with adhesive capsulitis. KES Electronically signed on 09/21/2023 3:58:00 PM by Levy Singh M.D.
== END 2023-09-21 09:06 | disposition home or self-care (01) ==
LOC: MRI 09:06
PROVIDERS: PCP Physician Assistant Medical; Visit Provider Orthopaedic Surgery
DX: M25.511 Pain in right shoulder (principal); M75.101 Unspecified rotator cuff tear or rupture of right shoulder, not specified as traumatic; M19.011 Primary osteoarthritis, right shoulder; M75.51 Bursitis of right shoulder; S43.431A Superior glenoid labrum lesion of right shoulder, initial encounter; M75.01 Adhesive capsulitis of right shoulder
CPT/HCPCS: 73221

== ENCOUNTER 2023-12-07 10:24 | Outpatient (CLI) | payer OTHER, SELFPAY ==
--- OUTSIDE RECORDS SUMMARY | 2023-12-09 11:17 | XMS_ITS | Clinical Summary ---
Author Organization [facility] Address [place], [place] [address] Care Team Providers Care Retail Parts Professional Name Role Phone Regine Rodgers Primary Care Provider Marlyn cody Allergies No known active allergies Medications Medication Sig Dispensed Refills Start Date End Date Status sertraline (ZOLOFT) 50 mg tablet once daily. 11/23/2020 Active fluorouracil 5% topical (EFUDEX) 5 % cream 09/06/2020 Active Active Problems Problem Noted Date [...] Outcome GA Total Labor Labor/2nd/3rd Weight Sex Type Anes PTL Franny A1 A5 Name Clin IAB 1991 Term 40w 0d 4h 00m/ 4.37 kg (9 lb 10 oz) F Vag Living 1995 Term 40w 0d 12h 00m/ 3.86 kg (8 lb 8 oz) M Vag Living Last Filed Vital Signs Vital Sign Reading Time Taken Comments Blood Pressure 128/85 02/06/2021 4:04 PM LABOR UNION BUSINESS REPRESENTATIVE Pulse 64 02/06/2021 4:04 PM LABOR UNION BUSINESS REPRESENTATIVE Temperature 36.6 ??C (97.8 ??F) 02/06/2021 4:04 PM CS T Respiratory Rate 20 02/06/2021 4:04 PM LABOR UNION BUSINESS REPRESENTATIVE Oxygen Saturation 100% 02/06/2021 4:04 PM LABOR UNION BUSINESS REPRESENTATIVE Inhaled Oxygen Concentration - - Weight 85.7 kg (189 lb) 01/13/2019 9:40 AM LABOR UNION BUSINESS REPRESENTATIVE Height 175.9 cm (5' 9.25) 01/13/2019 9:40 AM CS T Body Mass Index 27.71 01/13/2019 9:40 AM LABOR UNION BUSINESS REPRESENTATIVE Plan of Treatment Health Maintenance Due Date [...] 01/24/2011, Additional history exists COVID-19 vaccine series ( season) 2023 06/29/2020, 06/01/2020 Influenza for age 50-64 10/11/2023 11/07/19 15, 11/06/2014, 12/07/2002, Additional history exists Pap test for age 21-65 06/12/2025 3, 06/12/2022, 01/13/2019, Additional history exists Tdap Completed 02/05/2009 Pneumococcal series for age 6-64 Aged Out No longer eligible based on patient's age to complete this topic Procedures Procedure Name Priority Date/Time Associated Diagnosis Comments HPV HIGH RISK Routine 06/12/2022 9:30 AM CDT Encounter for screening for malignant neoplasm of cervix XR MAMMO ELIAZAR UNI DIAG RIGHT Routine 07/20/2019 10:09 AM CDT Breasts asymmetrical Follow-up exam, 3-6 months since previous exam LIPID PANEL W REFLEX MEASURED LDL Routine 01/21/2017 11:25 AM LABOR UNION BUSINESS REPRESENTATIVE Lipid screening SCAN-COLONOSCOPY 01/28/2013 12:0 0 AM LABOR UNION BUSINESS REPRESENTATIVE from Last 3 Months or Most Recently Relevant to Health Maintenance Results * HPV HIGH RISK (06/12/2022 9:30 AM CDT) TYPE 16 Negative Negative 06/18/2022 5:02 PM CDT [facility] TYPE 18 Negative Negative 06/18/2022 5:02 PM CDT [facility] OTHER HIGH RISK TYPES Negative Negative 06/18/2022 5:02 PM CDT [facility] Other (Cervical/Vagina l) 06/12/2022 9:30 AM CDT 06/16/2022 6:18 PM CDT [facility] - 06/18/2022 5:02 PM CDT HPV types 16, 18, 31, 33, 35, 39, 45, 51, 52, 56, 58, 59, 66 and 68 DNA were undetectable or below the pre-set threshold. Methodology: Lonny Bj 4800 HPV Test Gabriela Le PA-C MICROBIOLOGY [facility] LAB[facility] [address] [place] [address], [place] * XR MAMMO ELIAZAR UNI DIAG RIGHT (07/20/2019 10:09 AM CDT) Anatomical Region Laterality Modality BREASTS, Breast Right Mammograph y 07/20/2019 10:0 9 AM CDT Narrative 07/20/2019 11:39 AM CDT EXAM: XR MAMMO ELIAZAR UNI DIAG RIGHT, US BREAST UNILATERAL RIGHT LIMITED LOCATION: [facility] DATE/TIME: 07/20/2019 10:09 AM INDICATION: 58-year-old female presents to reestablish baseline 6 months following benign tomosynthesis right breast biopsy which yielded radial scar/complex sclerosing lesion on 01/19/2019. No current breast symptoms. COMPARISON: Prior mammogram exams, including 01/19/2019 through 05/22/2016.. MAMMOGRAPHIC FINDINGS: Right full-field digital diagnostic mammograms performed. The breasts are heterogeneously dense, which may obscure small masses. Images evaluated with the assistance of CAD. Breast tomosynthesis was used in interpretation. Interval postbiopsy changes with a coil clip present at the biopsy site at 12:00 anterior/middle depth. Mild associated distortion is again noted in this region. No new suspicious masses or calcifications. ULTRASOUND FINDINGS: Targeted ultrasound in the area of prior biopsy at 12:00, 4 cm from the nipple, demonstrates an island of fibroglandular tissue containing the HydroMARK biopsy clip. No associated suspicious mass or shadowing. IMPRESSION: 1. ??Interval postbiopsy changes in the superior right breast at 12:00, 4 cm from the nipple; biopsy yielded radial scar. Given the benign concordant results and stable imaging findings, patient may return to routine screening mammography. These findings and recommendations were discussed with the patient at the conclusion of the examination. ?? ACR BI-RADS Category 2: Benign. Regine Rodgers MAMMO * LIPID PANEL W REFLEX MEASURED LDL (01/21/2017 11:25 AM LABOR UNION BUSINESS REPRESENTATIVE) CHOLESTEROL,TOTAL 199 100 - 199 mg/dL 01/21/2017 6:18 PM LABOR UNION BUSINESS REPRESENTATIVE [facility] TRIGLYCERIDES 131 <150 mg/dL 01/21/2017 6:18 PM LABOR UNION BUSINESS REPRESENTATIVE [facility] HDL CHOLESTEROL 62 >40 mg/dL 7 6:18 PM LABOR UNION BUSINESS REPRESENTATIVE [facility] NON-HDL CHOLESTEROL 137 <145 mg/dl 01/21/2017 6:18 PM LABOR UNION BUSINESS REPRESENTATIVE [facility] CHOL/HDL RATIO 3.21 <4.50 01/21/2017 6:18 PM LABOR UNION BUSINESS REPRESENTATIVE [facility] LDL CHOLESTEROL 111 <=130 mg/dL 01/21/2017 6:18 PM LABOR UNION BUSINESS REPRESENTATIVE [facility] PROVIDER ORDERED STATUS RANDOM 01/21/2017 6:18 PM LABOR UNION BUSINESS REPRESENTATIVE [facility] Blood BLOOD SPECIMEN / Unknown Venipuncture / Unknown 01/21/2017 11:25 AM LABOR UNION BUSINESS REPRESENTATIVE 01/21/2017 11:31 AM LABOR UNION BUSINESS REPRESENTATIVE Regine Rodgers [facility] [address] [place] [address], * SCAN-COLONOSCOPY (01/28/2013 12:00 AM LABOR UNION BUSINESS REPRESENTATIVE) Scanner OTHER from Last 3 Months or Most Recently Relevant to Health Maintenance Care Teams Retail Parts Professional Relationship Specialty Start Date End Date Regine Rodgers PCP - General Nurse Practitioner 01/21/17
--- OUTSIDE RECORDS SUMMARY | 2023-12-09 11:17 | XMS_ITS | Clinical Summary ---
Author Organization [facility] Address [address] [place] [address] Care Team Providers Care Impregnator And Drier Helper Name Role Phone No Ref-Primary, Physician Primary Care Provider Allergies No known active allergies Medications sertraline (ZOLOFT) 50 MG tablet Daily 11/23/2020 Active fluorouracil (EFUDEX) 5 % external cream 09/06/2020 [facility], [facility], or Other Facility Administered Medication [...] School Help Needed Not on file 11/02 Comments Unknown Sex and Gender Information Value Date Recorded Sex Assigned at Not on file Legal Sex Female 3:24 AM FRUIT AND VEGETABLE INSPECTOR Gender Identity Not on file Sexual Orientation Not on file Last Filed Vital Signs Vital Sign Reading Time Taken Comments Blood Pressure 112/72 01/30/2021 2:53 PM FRUIT AND VEGETABLE INSPECTOR Pulse - - Temperature - - Respiratory Rate - - Oxygen Saturation - - Inhaled Oxygen Concentration - - Weight 87.6 kg (193 lb 3.2 oz) 01/30/2021 2:53 P M FRUIT AND VEGETABLE INSPECTOR Height 176.5 cm (5' 9.5) 01/30/2021 2:53 PM FRUIT AND VEGETABLE INSPECTOR Body Mass Index 28.12 01/30/2021 2:53 PM FRUIT AND VEGETABLE INSPECTOR Plan of Treatment Health Maintenance Due Date Last Done Comments ADVANCE CARE PLANNING 1960 ANNUAL REVIEW OF HM ORDERS 1962 CT COLONOGRAPHY 1962 FIT 1962 FLEX SIG 1962 GLUCOSE 1962 MAMMO SCREENING 1962 YEARLY PREVENTIVE VISIT 1962 sDNA (Cologuard) 1962 COLONOSCOPY 1972 COLORECTAL CANCER SCREENING 1972 HIV SCREENING 1977 HEPATITIS C SCREENING 1980 PAP 12/10/1983 LIPID 2002 ZOSTER IMMUNIZATION (1 of 2) 2012 PHQ-2 (once per calendar year) 2023 COVID-19 Vaccine ( season) 2023 06/29/2020, 06/01/2020 INFLUENZA VACCINE (#1) 2023 5, 02/26/2009, 12/07/2002, Additional history exists DTAP/TDAP/TD IMMUNIZATION (5 - Td or Tdap) 01/08/2031 01/08/2021, 01/08/2021, 02/05/2009, Additional history exists RSV VACCINE (1 - 1-dose 75+ series) 2037 HPV IMMUNIZATION Aged Out No longer e [...] on patient's age to complete this topic Insurance KYLE Garcia [id number] [facility] [employer] Care Teams Impregnator And Drier Helper Relationship Specialty Start Date End Date No Ref-Primary, Physician PCP - General 01/25/20
--- OUTSIDE RECORDS SUMMARY | 2023-12-09 11:17 | XMS_ITS | Referral Summary ---
Author Organization [facility] Address [address] [place] [address] Care Team Providers Care Animal Assisted Therapist Name Role Phone No Ref-Primary, Physician Primary Care Provider Allergies No known active allergies Medications sertraline (ZOLOFT) 50 MG tablet Daily 11/23/2020 Active fluorouracil (EFUDEX) 5 % external cream 09/06/2020 [facility], [facility], or Other Facility Administered Medication Ordered [...] on file Legal Sex Female 3:24 AM JOINT CREASER Gender Identity Not on file Sexual Orientation Not on file Last Filed Vital Signs Vital Sign Reading Time Taken Comments Blood Pressure 112/72 01/30/2021 2:53 PM JOINT CREASER Pulse - - Temperature - - Respiratory Rate - - Oxygen Saturation - - Inhaled Oxygen Concentration - - Weight 87.6 kg (193 lb 3.2 oz) 01/30/2021 2:53 P M JOINT CREASER Height 176.5 cm (5' 9.5) 01/30/2021 2:53 PM JOINT CREASER Body Mass Index 28.12 01/30/2021 2:53 PM JOINT CREASER Plan of Treatment Not on file Insurance [facility] [employer] Care Teams Animal Assisted Therapist Relationship Specialty Start Date End Date No Ref-Primary, Physician PCP - General 01/25/20
== END 2023-12-07 10:25 | disposition home or self-care (01) ==
LOC: NFLDREF 12-09 11:14
PROVIDERS: PCP Physician Assistant Medical; Referring Provider Physician Assistant Medical; Visit Provider Physician Assistant Medical
DX: Z00.00 Encounter for general adult medical examination without abnormal findings (principal); F32.0 Major depressive disorder, single episode, mild; F41.1 Generalized anxiety disorder; Z13.6 Encounter for screening for cardiovascular disorders; Z13.29 Encounter for screening for other suspected endocrine disorder
CPT/HCPCS: 80053; 80061; 84443

== ENCOUNTER 2024-03-21 09:04 | Outpatient (CLI) | payer OTHER, SELFPAY ==
--- NOTE | 2024-03-21 09:15 | CRLHL7_ITS ---
For Patients: As a result of the Century Cures Act, medical imaging exams and procedure reports are released immediately into your electronic medical record. You may view this report before your referring provider. If you have questions, please contact your health care provider. BILATERAL SCREENING MAMMOGRAM WITH COMPUTER-AIDED DETECTION AND TOMOSYNTHESIS TECHNIQUE: CC and MLO views were obtained. These mammographic images have been obtained using full-field digital technique. These mammographic images were interpreted with the benefit of computer-aided detection. Breast tomosynthesis was used in this interpretation. COMPARISON FILM: 03/09/23, 12/04/21, 09/20/20. FINDINGS: There are scattered areas of fibroglandular density. IMPRESSION: There is no radiographic evidence for malignancy. ASSESSMENT: BI-RADS Category 1: Negative RECOMMENDATION: Routine screening mammogram in 1 year. A lay language report of this examination will be provided to the patient. ALEX BRYSON M.D. Diagnostic Radiologist [email or web address] SADIA/jr Transcribed: 03/21/2024, 12:[address]/Dictated by: Alex Bryson MD @ 03/21/2024 9:59:00 AM (Electronically Signed)
== END 2024-03-21 09:05 | disposition home or self-care (01) ==
LOC: MAMMO 09:05
PROVIDERS: PCP Physician Assistant Medical; Visit Provider Physician Assistant Medical
DX: Z12.31 Encounter for screening mammogram for malignant neoplasm of breast (principal)
CPT/HCPCS: 77063; 77067